=== PATIENT | female | born 1990 | race Hispanic/Latino ===

== ENCOUNTER 2017-05-23 10:03 | Emergency (ER) | payer BC ==
[2017-05-23] MEDS ORDERED: ONDANSETRON ODT 4 MG TAB ONE (10:30)
[2017-05-23 10:50] LABS: BASOPHILS % (AUTO) 0.1 % (0.0-5.0); EOSINOPHILS % (AUTO) 0.6 % (0.0-8.0); HEMATOCRIT 39.9 % (36-48); LYMPHOCYTES % (AUTO) 18.9 % (21.0-51.0); MEAN CORPUSCULAR HEMOGLOBIN 31.3 pg (27.0-33.0); MEAN CORPUSCULAR HGB CONC 33.9 g/dL (32.0-36.0); MEAN CORPUSCULAR VOLUME 92.2 fL (79-99); MONOCYTES % (AUTO) 5.9 % (3.0-13.0); NEUTROPHILS % (AUTO) 74.5 % (40.0-77.0); PLATELET COUNT (AUTO) 259 K/uL (130-400); RED BLOOD CELL COUNT(AUTO) 4.33 MIL/uL (4.00-5.50); RED CELL DISTRIBUTION WIDTH 13.5 % (11.0-15.5)
[2017-05-23 10:52] LABS: APPEARANCE,URINE Clear (CLEAR); BILIRUBIN,URINE Negative (NEGATIVE); COLOR,URINE Yellow (YELLOW); GLUCOSE, URINE (UA) Negative (NEGATIVE); KETONES,URINE Negative (NEGATIVE); LEUKOCYTE ESTERASE ,URINE Trace (NEGATIVE); NITRATE,URINE Negative (NEGATIVE); OCCULT BLOOD,URINE Negative (NEGATIVE); PROTEIN,URINE Negative (NEGATIVE)
[2017-05-23 10:56] LABS: HCG,QUAL RESULT NEGATIVE (NEGATIVE)
[2017-05-23 10:59] LABS: CREATININE 0.6 mg/dL (0.5-1.5); POTASSIUM 3.7 mmol/L (3.5-5.1)
[2017-05-23 11:03] LABS: ALBUMIN 3.8 g/dL (3.5-5.0); BILIRUBIN,TOTAL 0.4 mg/dL (0.2-1.0); TOTAL PROTEIN, SERUM 7.7 g/dL (6.0-8.3)
[2017-05-23 11:25] LABS: BACTERIA,URINE Rare /HPF (None Seen); MUCUS,URINE Moderate LPF (None Seen); RBC,URINE None Seen /HPF (0-1); SQUAMOUS EPITHELIAL CELL,UR Moderate /LPF (0-2)
== END 2017-05-23 11:24 | disposition home or self-care (01) ==
LOC: EDH 10:03
DX: R10.10 Upper abdominal pain, unspecified (principal); R11.0 Nausea
CPT/HCPCS: 36415; 80053; 81001; 81025; 83690; 85025

== ENCOUNTER 2018-02-15 12:20 | Emergency (ER) | payer BC ==
[2018-02-15 12:53] LABS: BASOPHILS % (AUTO) 0.7 % (0.0-5.0); EOSINOPHILS % (AUTO) 0.2 % (0.0-8.0); HEMATOCRIT 39.4 % (36-48); MEAN CORPUSCULAR HEMOGLOBIN 30.6 pg (27.0-33.0); MEAN CORPUSCULAR HGB CONC 33.7 g/dL (32.0-36.0); MEAN CORPUSCULAR VOLUME 90.7 fL (79-99); MONOCYTES % (AUTO) 5.1 % (3.0-13.0); PLATELET COUNT (AUTO) 321 K/uL (130-400); RED BLOOD CELL COUNT(AUTO) 4.34 MIL/uL (4.00-5.50); RED CELL DISTRIBUTION WIDTH 13.1 % (11.0-15.5); WHITE BLOOD COUNT (AUTO) 9.1 K/uL (4.8-10.8)
[2018-02-15 13:02] LABS: CREATININE 0.6 mg/dL (0.5-1.5); POTASSIUM 3.7 mmol/L (3.5-5.1)
[2018-02-15 13:08] LABS: ALBUMIN 3.6 g/dL (3.5-5.0); BILIRUBIN,TOTAL 0.4 mg/dL (0.2-1.0)
[2018-02-15] MEDS ORDERED: ACETAMINOPHEN 325 MG TAB ONE (14:25)
== END 2018-02-15 14:31 | disposition home or self-care (01) ==
LOC: EDH 12:20
DX: R07.89 Other chest pain (principal)
CPT/HCPCS: 36415; 71046; 80053; 84484; 84702; 85025; 93005

== ENCOUNTER 2019-01-09 08:42 | Emergency (ER) | payer BC, OTHER ==
[2019-01-09 09:12] LABS: APPEARANCE,URINE Clear (CLEAR); BILIRUBIN,URINE Negative (NEGATIVE); COLOR,URINE Yellow (YELLOW); GLUCOSE, URINE (UA) Negative (NEGATIVE); KETONES,URINE Negative (NEGATIVE); LEUKOCYTE ESTERASE ,URINE Small (NEGATIVE); NITRATE,URINE Negative (NEGATIVE); OCCULT BLOOD,URINE Negative (NEGATIVE); PROTEIN,URINE Negative (NEGATIVE)
[2019-01-09 09:18] LABS: BASOPHILS % (AUTO) 0.2 % (0.0-5.0); EOSINOPHILS % (AUTO) 0.3 % (0.0-8.0); HEMATOCRIT 40.3 % (36-48); MEAN CORPUSCULAR HEMOGLOBIN 31.3 pg (27.0-33.0); MEAN CORPUSCULAR HGB CONC 33.4 g/dL (32.0-36.0); MEAN CORPUSCULAR VOLUME 93.7 fL (79-99); MONOCYTES % (AUTO) 6.1 % (3.0-13.0); NEUTROPHILS % (AUTO) 62.4 % (40.0-77.0); PLATELET COUNT (AUTO) 258 K/uL (130-400); RED CELL DISTRIBUTION WIDTH 13.3 % (11.0-15.5); WHITE BLOOD COUNT (AUTO) 8.1 K/uL (4.8-10.8)
[2019-01-09 09:18] LABS: RAPID GROUP A STREP NEGATIVE (NEGATIVE)
[2019-01-09 09:29] LABS: CREATININE 0.7 mg/dL (0.5-1.5); POTASSIUM 3.6 mmol/L (3.5-5.1)
[2019-01-09 09:31] LABS: RBC,URINE None Seen /HPF (0-1)
[2019-01-09 09:32] LABS: BACTERIA,URINE Few /HPF (None Seen); MUCUS,URINE Moderate LPF (None Seen)
[2019-01-09 09:33] LABS: BILIRUBIN,DIRECT 0.1 mg/dL (0.0-0.3); BILIRUBIN,TOTAL 0.4 mg/dL (0.2-1.0); TOTAL PROTEIN, SERUM 8.2 g/dL (6.0-8.3)
[2019-01-09] MEDS ORDERED: ONDANSETRON HCL 4 MG/2 ML VIAL ONE (09:49)
[2019-01-09] MEDS ORDERED: KETOROLAC TROMETHAMINE 30MG/ML ONE (09:49)
[2019-01-09] MEDS ORDERED: SODIUM CHLORIDE 0.9% 1000ML 1,000 ML IV ONE (09:50)
== END 2019-01-09 12:33 | disposition home or self-care (01) ==
LOC: EDH 08:42
DX: N20.1 Calculus of ureter (principal); R10.31 Right lower quadrant pain; F32.9 Major depressive disorder, single episode, unspecified; Z87.442 Personal history of urinary calculi; Z98.890 Other specified postprocedural states
CPT/HCPCS: 36415; 76705; 76770; 80048; 80076; 81001; 81025; 83690; 85025; 87804 ×2; 87880; 96374; 96375; 99285; J1885; J2405; J7030

== ENCOUNTER 2019-06-28 08:36 | Emergency (ER) | payer OTHER ==
[2019-06-28] MEDS ORDERED: LIDOCAINE HCL-MPF 1% 2ML VIAL ONE (09:40)
[2019-06-28] MEDS ORDERED: OXYMETAZOLINE HCL SPRAY 15 ML BOTTLE ONE (09:40)
[2019-06-28] MEDS ORDERED: CEFTRIAXONE SODIUM 1 GM ONE (09:40)
== END 2019-06-28 10:25 | disposition home or self-care (01) ==
LOC: EDH 08:36
DX: J01.10 Acute frontal sinusitis, unspecified (principal); R51 Headache; F32.9 Major depressive disorder, single episode, unspecified
CPT/HCPCS: 96372; 99283; J0696; J3490

== ENCOUNTER 2020-08-01 09:43 | Emergency (ER) | payer OTHER | END 2020-08-01 11:57 | disposition home or self-care (01) | LOC: EDH 09:43 | DX: B34.9 Viral infection, unspecified (principal); Z20.822 Contact with and (suspected) exposure to COVID-19; I10 Essential (primary) hypertension; F32.9 Major depressive disorder, single episode, unspecified; Z87.442 Personal history of urinary calculi | CPT/HCPCS: 81025; 87426; 87804 ×2; 93005; 99284; U0003 ==

== ENCOUNTER 2024-09-05 18:22 | Emergency (ER) | payer SELFPAY ==
[~2024-09-05] VITALS: Ht 157.5 cm; Wt 96.2 kg
[2024-09-05 19:35] LABS: BASOPHILS # (AUTO) 0.02 K/uL (0.00-0.20); BASOPHILS % (AUTO) 0.3 % (0.0-5.0); EOSINOPHILS # (AUTO) 0.08 K/uL (0.00-0.70); EOSINOPHILS % (AUTO) 1.1 % (0.0-8.0); HEMATOCRIT 38.4 % (36-48); IMMATURE GRANULOCYTE ABSOLUTE 0.02 K/uL (0-1); LYMPHOCYTES # (AUTO) 3.4 K/uL (1.0-4.8); LYMPHOCYTES % (AUTO) 45.2 % (21.0-51.0); MEAN CORPUSCULAR HEMOGLOBIN 30.5 pg (27.0-33.0); MEAN CORPUSCULAR VOLUME 95.3 fL (79-99); MONOCYTES # (AUTO) 0.5 K/uL (0.1-1.0); MONOCYTES % (AUTO) 6.5 % (3.0-13.0); NEUTROPHILS # (AUTO) 3.5 K/uL (1.8-7.7); NEUTROPHILS % (AUTO) 46.6 % (40.0-77.0); PLATELET COUNT (AUTO) 304 K/uL (130-400); RED BLOOD CELL COUNT(AUTO) 4.03 MIL/uL (4.00-5.50); RED CELL DISTRIBUTION WIDTH 12.9 % (11.0-15.5); WHITE BLOOD COUNT (AUTO) 7.5 K/uL (4.8-10.8)
[2024-09-05 19:38] LABS: APPEARANCE,URINE CLEAR (CLEAR); BILIRUBIN,URINE NEGATIVE (NEGATIVE); COLOR,URINE LIGHT-YELLOW (YELLOW); GLUCOSE, URINE (UA) NEGATIVE (NEGATIVE); KETONES,URINE NEGATIVE (NEGATIVE); LEUKOCYTE ESTERASE ,URINE NEGATIVE Leu/uL (NEGATIVE); NITRATE,URINE NEGATIVE (NEGATIVE); OCCULT BLOOD,URINE NEGATIVE (NEGATIVE); PH,URINE 5.5 (5.0-8.0); PROTEIN,URINE NEGATIVE (NEGATIVE); UROBILINOGEN,URINE 0.2 mg/dL (0.2-1.0)
[2024-09-05 19:39] LABS: ADD UA MICROSCOPIC NO
[2024-09-05 19:42] LABS: CREATININE 0.7 mg/dL (0.5-1.0); POTASSIUM 3.5 mmol/L (3.5-5.1)
[2024-09-05] MEDS: ketOROlac 15MG/ML VIAL (15MG/ML) IV STA (20:14)
--- NOTE | 2024-09-05 20:41 | HMCIMG ---
US PELVIC NON-OB COMP HISTORY: Pelvic pain COMPARISON: None TECHNIQUE: Transabdominal pelvic ultrasound study was performed. FINDINGS: The uterus measures 8.5 x 5.5 x 4.7 cm. The right ovary measures 1.6 x 1.9 x 1.8 cm. The left ovary measures 2.3 x 1.5 x 2.2 cm. Endometrial thickness is 8 mm. Flow is seen in both ovaries. No free fluid is seen in the cul-de-sac. IMPRESSION: 1. No adnexal mass is seen.
--- NOTE | 2024-09-05 21:04 | ERN ---
ED Note History of Present Illness Stated Complaint: LOWER ABDOMINAL PAIN Chief Complaint: Abdominal Pain Time Seen by MD: 18:26 Time Seen by Midlevel: 18:30 Dictation: 34-year-old female with no past medical history coming in with complaining of bilateral lower abdominal pain, denies any dysuria, no vomiting, no diarrhea. Patient states she does have some nausea. LMP is 08/17/2024. Allergies: Coded Allergies: No Known Allergies (Unverified Allergy, Unknown, 01/09/19) Past Medical History Past Medical History: No Pertinent History Surgical History: None Review of System Dictation Constitutional: Negative for fever,chills, and weight loss Eyes: Negative for injury, pain,redness, and discharge ENT: Negative for injury,pain or swelling Cardiovascular: Negative for chest pain, palpitations, and edema Respiratory: Negative for shortness of breath, cough, and wheezing, Abdomen/GI: Complaining of bilateral lower abdominal pain, no nausea, no vomiting, no diarrhea, and constipation Back: Negative for injury and pain : Negative for injury, bleeding and discharge MS/Extremity: Negative for injury and deformity Skin: Negative for rash, and discoloration Neuro: Negative for headache, weakness, numbness, tingling, and seizure Psych: Negative for suicide ideation, homicidal ideation, and hallucinations Review of Systems: was completed Initial Vital Sign VS Vital Signs Date Time Temp Pulse Resp B/P (MAP) Pulse Ox O2 Delivery O2 Flow Rate FiO2 09/05/24 18:32 97.3 74 16 146/95 100 Room Air 09/05/24 19:18 0 21 Physical Exam Dictation General: awake, alert, NAD Head/Face: Normocephalic, atraumatic Eyes: PERRL, EOMI, vision at baseline ENT: oral cavity clear, TMs clear, no signs of infection Neck: Trachea midline, supple, no nuchal rigidity Cardiovascular: RRR, normal S1/S2, No MRGs, no JVD Respiratory: CTAB, no respiratory distress, No rales or wheezes Abdomen: Soft, non-tender, non-distended, normal bowel sounds, no guarding or rebound. Skin: Warm, dry, normal turgor, no rash MS/Extremity: Pulses equal, no cyanosis, neurovascular intact, FROM Neuro: COAx4, GCS 15, strength 5/5, CN 2-12 intact, normal cerebellar exam, normal gait, Psych: Normal behavior, mood, and affect normal Results (Laboratory/Radiology) Laboratory/Radiology Laboratory Tests Test 09/05/24 19:15 09/05/24 19:29 Urine Color LIGHT-YELLOW (YELLOW) Urine Appearance CLEAR (CLEAR) Urine pH 5.5 (5.0-8.0) Urine Specific Reading 1.026 (1.001-1.031) Urine Protein NEGATIVE mg/dL (NEGATIVE) Urine Glucose (UA) NEGATIVE mg/dL (NEGATIVE) Urine Ketones NEGATIVE mg/dL (NEGATIVE) Urine Occult Blood NEGATIVE (NEGATIVE) Urine Nitrate NEGATIVE (NEGATIVE) Urine Bilirubin NEGATIVE mg/dL (NEGATIVE) Urine Urobilinogen 0.2 mg/dL (0.2-1.0) Urine Leukocyte Esterase NEGATIVE [place]/uL White Blood Count 7.5 K/uL (4.8-10.8) Red Blood Count 4.03 MIL/uL (4.00-5.50) Hemoglobin 12.3 g/dL (12.0-16.0) Hematocrit 38.4 % (36-48) Mean Corpuscular Volume 95.3 fL (79-99) Mean Corpuscular Hemoglobin 30.5 pg (27.0-33.0) Mean Corpuscular Hemoglobin Concent 32.0 g/dL (32.0-36.0) Red Cell Distribution Width 12.9 % (11.0-15.5) Platelet Count 304 K/uL (130-400) Mean Platelet Volume 11.4 fL (7.5-10.5) H Immature Granulocyte % (Auto) 0.3 % (0-1) Neutrophils (%) (Auto) 46.6 % (40.0-77.0) Lymphocytes (%) (Auto) 45.2 % (21.0-51.0) Monocytes (%) (Auto) 6.5 % (3.0-13.0) Eosinophils (%) (Auto) 1.1 % (0.0-8.0) Basophils (%) (Auto) 0.3 % (0.0-5.0) Neutrophils # (Auto) 3.5 K/uL (1.8-7.7) Lymphocytes # (Auto) 3.4 K/uL (1.0-4.8) Monocytes # (Auto) 0.5 K/uL (0.1-1.0) Eosinophils # (Auto) 0.08 K/uL (0.00-0.70) Basophils # (Auto) 0.02 K/uL (0.00-0.20) Absolute Immature Granulocyte (auto 0.02 K/uL (0-1) Nucleated Red Blood Cells 0.0 % (0.0-0.19) Sodium Level 140 mmol/L (136-145) Potassium Level 3.5 mmol/L (3.5-5.1) Chloride Level 104 mmol/L (101-111) Carbon Dioxide Level 25 mmol/L (21-32) Blood Urea Nitrogen 11 mg/dL (7-18) Creatinine 0.7 mg/dL (0.5-1.0) Glomerular Filtration Rate Calc 115 mL/min (>90) Random Glucose 90 mg/dL (70-105) Total Calcium 8.7 mg/dL (8.5-10.1) Human Chorionic Gonadotropin, Quant 1 mIU/mL (0-5) Labs Reviewed?: Yes Ultrasound Comment: [place] [id number] IMAGING REPORT Signed PATIENT: RAAD AQUINO MR#: [id number] : 1990 SEX: F AGE: 34 LOCATION: [facility] [address] ORDER 55 STATUS: REG ER REPORT#: [id number] SERVICE 54 REASON: bilateral lower abdominal pain ORDERING PHYSICIAN: JOSE LEVY NP PROCEDURE: PELVCOMP - US PELVIC NON-OB COMP US PELVIC NON-OB COMP HISTORY: Pelvic pain COMPARISON: None TECHNIQUE: Transabdominal pelvic ultrasound study was performed. FINDINGS: The uterus measures 8.5 x 5.5 x 4.7 cm. The right ovary measures 1.6 x 1.9 x 1.8 cm. The left ovary measures 2.3 x 1.5 x 2.2 cm. Endometrial thickness is 8 mm. Flow is seen in both ovaries. No free fluid is seen in the cul-de-sac. IMPRESSION: 1. No adnexal mass is seen. DICTATED BY: KAYLI DE LUNA MD DATE: 09/05/242027 ELECTRONICALLY SIGNED BY: KAYLI DE LUNA MD DATE: 09/05/242040 ED Course ED Course Orders Procedure Category Date Status Time Cbc With Differential LAB 09/05/24 Complete 18:46 Basic Metabolic Panel LAB 09/05/24 Complete 18:46 Hcg,Quantitative LAB 09/05/24 Complete 18:46 Urinalysis Profile LAB 09/05/24 Complete 18:46 Ketorolac PHA 09/05/24 Complete Tromethamine 15mg/Ml 19:55 Us Pelvic Non-Ob Comp US 09/05/24 Resulted 19:55 Current Medications Medications (Trade) Dose Ordered Sig/Lamar Route PRN Reason Start Time Stop Time Status Last Admin Dose Admin Ketorolac Tromethamine (toRADol) 15 mg ONCE STAT IV 09/05/24 19:55 09/05/24 19:56 DC 09/05/24 20:14 Vital Signs Date Time Temp Pulse Resp B/P (MAP) Pulse Ox O2 Delivery O2 Flow Rate FiO2 09/05/24 19:18 97.3 74 16 146/95 100 Room Air* 0 21 09/05/24 18:32 97.3 74 16 146/95 100 Room Air Medical Decision Making MDM MDM: 34-year-old female with no past medical history coming in with complaining of bilateral lower abdominal pain, denies any dysuria, no vomiting, no diarrhea. Patient states she does have some nausea. LMP is 08/17/2024.Blood work unremarkable. UA shows no evidence of urinary tract infection. Right and left ovary an ultrasound and within normal range. Flow is seen to both ovaries. No free fluid seen in the cul-de-sac. Discussed findings with the patient. Educated patient this could be PMS symptoms from her upcoming menstruation, educated however if symptoms persist or worsen to return back to the ER follow up with her PCP. Patient verbalized understanding, answered all questions. Differential diagnosis: , urinary tract infection, PMS Rationale: Tests considered and ordered secondary to shared decision making include: Previous outside records reviewed: Old ER visits. Risk of complication and/or morbidity or mortality of patient management: None Medications-Per medication reconciliation Need for hospitalization: Patient does not meet criteria for hospitalization. Need for emergency major/minor surgery: No There are no social concerns with this patient. Prescription drug management Prescriptions will include symptomatic care Patient's prior external medical records from other ER visits were reviewed by me as indicated. Prior testing and results from previous visits were reviewed. Prior tests were taken into account with medical decision making and resource utilization, independent historian/historians were used to obtain complete medical history. I independently interpreted the test that were performed, results were reviewed by me and considered findings on radiology if ordered. Medical management and examination interpretation discussions were had by me wi th other qualified healthcare professionals as indicated for the patient's care. DX & DISP Disposition: Discharge Departure Impression: Primary Impression: Pelvic pain Condition: Stable Additional Instructions: Please follow up with PCP in 1-2 days. It is symptoms persist or worsen please return back to the ER. Referrals: ADALBERTO SALCEDO (PCP) Time of Disposition: 21:02 I have reviewed the case, and I agree with, Diagnosis and Plan JOSE LEVY NP Sep 05, 2024 21:04
[2024-09-05 21:27] VITALS: BP 132/88; PULSE 78; RESP 16; TEMP 97.3; O2SAT 100
== END 2024-09-05 21:30 | disposition home or self-care (01) ==
LOC: EDH 18:22
DX: R10.2 Pelvic and perineal pain (principal)
CPT/HCPCS: 99285; 96374; 76856; 80048; 84702; 85025; 81003; 36415; J1885